=== PATIENT | female | born 1985 | race Caucasian/White ===

== ENCOUNTER 2018-03-12 08:09 | Emergency (ER) | payer SELFPAY ==
[2018-03-12] MEDS ORDERED: ONDANSETRON 4 MG/2 ML VIAL ONE (08:27)
[2018-03-12] MEDS ORDERED: NA CHLORIDE 0.9% 1,000 ML ONE (08:28)
[2018-03-12] MEDS ORDERED: FAMOTIDINE 20 MG/2 ML VIAL IV ONE (08:28)
[2018-03-12 08:58] LABS: Glucose Level 221 mg/dL (65-120)
[2018-03-12 09:01] LABS: Absolute Lymphocytes (CBC) 3.2 K/uL (0.7-4.9); Absolute Monocytes 0.7 K/uL (0.1-1.3); Absolute Neutrophil 17.2 K/uL (1.8-8.0); Basophils % 0.4 % (0-1.3); Eosinophils % 3.4 % (0-4.4); Hematocrit 38.4 % (36.0-45.0); Lymphocytes % 14.6 % (15.3-44.8); MCH 32.2 pg (27.0-35.0); MCV 97.3 fL (80-100); MPV 7.8 fL (7.6-11.3); Monocytes % 3.3 % (3.3-12.3); RBC Red Blood Cell Count 3.94 M/uL (3.86-4.86)
[2018-03-12 09:04] LABS: ALT/SGPT 11 IU/L (10-60); AST/SGOT 27 IU/L (10-42); Albumin 4.5 g/dL (3.2-5.5); Alkaline Phosphatase 87 IU/L (42-121); BUN Blood Urea Nitrogen 12 mg/dL (6-20); Bilirubin Direct 0.1 mg/dL (0-0.2); Bilirubin Total 0.7 mg/dL (0.3-1.2); Protein, Total 7.8 g/dL (6.0-8.3); Protime INR 1.32
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
[2018-03-12 09:14] LABS: Bicarbonate 16 mEq/L (21-31); Sodium Level 137 mEq/L (135-145)
[2018-03-12 09:15] LABS: Alcohol Serum/Plasma < 10 mg/dl
[2018-03-12 09:16] LABS: Potassium 2.8 mEq/L (3.6-5.0)
[2018-03-12 10:16] LABS: Blood Morphology Comment NOT SEEN (NOT SEEN); Platelet Estimate INCR
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
[2018-03-12] MEDS ORDERED: POTASSIUM CL SA 10 MEQ TAB PO ONE (10:55)
[2018-03-12] MEDS ORDERED: KCL 20 MEQ/100 mL IVPB 20 MEQ/100 ML BAG IV ONE (10:55)
[2018-03-12 10:57] LABS: Barbiturates NEGATIVE; Benzodiazepines POSITIVE; Cocaine NEGATIVE; METHAMPHETAM NEGATIVE (NEGATIVE); Opiates NEGATIVE; Phencyclidine NEGATIVE
[2018-03-12 11:00] LABS: THC Cannibis POSITIVE
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
[2018-03-12] MEDS ORDERED: NICOTINE 21 MG/PAT TD ONE (11:28)
[2018-03-12] MEDS ORDERED: LIDOCAINE 1% MPF 2 ML AMPULE ONE (11:56)
[2018-03-12] MEDS ORDERED: LIDOCAINE 2% W/EPI 1:200,000 MPF 20 ML VIAL IM ONE (11:59)
[2018-03-12 12:13] LABS: Urine Blood NEGATIVE (NEG); Urine Glucose NEGATIVE (NEG); Urine Protein 2+ (NEG); Urine Specific Gravity >1.030 (1.005-1.030); Urine pH 5.5 (5.0-7.0)
[2018-03-12 13:34] LABS: Appearance CLEAR (CLEAR); Body Fluid Source CSF; Color of fluid Colorless (COLORLESS); Fluid Total Volume 4 ml
[2018-03-12 13:35] LABS: Appearance CLEAR (CLEAR); Body Fluid Source CSF; Body Fluid WBC 0 /mm^3; Color of fluid Colorless (COLORLESS)
[2018-03-12 13:36] LABS: Body Fluid WBC 0 /mm^3
--- NOTE | 2018-03-12 13:42 | EKG ---
Test Date: 2018-03-12 Test Time: 09:00:38 Aluminum Siding Installer: ADDI MEASUREMENT RESULTS: Intervals: Rate: 119 NV: QRSD: 78 QT: 430 QTc: 604 Lamont: P: NV: QRS: 92 T: 65 INTERPRETIVE STATEMENTS: Accelerated Junctional rhythm Rightward axis Cannot rule out Anterior infarct, age undetermined Prolonged QT Abnormal ECG No previous ECG available for comparison Electronically Signed On 03-12-18 13:40:41 CDT by Amos Marie
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
[2018-03-12 15:08] LABS: CSF Glucose 72 mg/dl (40-70)
--- NOTE | 2018-03-13 07:43 | EKG ---
Test Date: 2018-03-12 Test Time: 13:36:58 [place] Processor: JENNA MEASUREMENT RESULTS: Intervals: Rate: 103 NC: 164 QRSD: 78 QT: 368 QTc: 482 [place]: P: 49 NC: 164 QRS: 83 T: 66 INTERPRETIVE STATEMENTS: Sinus tachycardia Otherwise normal ECG Compared to ECG 03/12/2018 09:00:38 Myocardial infarct finding no longer present Prolonged QT interval no longer present Electronically Signed On 03-13-18 07:42:36 CDT by Francesco Brady
== END 2018-03-12 15:01 | disposition home or self-care (01) ==
LOC: ER 08:09
DX: R56.9 Unspecified convulsions (principal); E87.6 Hypokalemia; V47.5XXA Car driver injured in collision with fixed or stationary object in traffic accident, initial encounter; F20.9 Schizophrenia, unspecified; F31.9 Bipolar disorder, unspecified
CPT/HCPCS: 36415; 51702; 62270; 70450; 71045; 71260; 72125; 74177; 80048; 80076; 80307; 80320; 80329; 81003; 81025; 82945; 82962; 84157; 85025; 85610; 85730; 86403; 87070; 89050; 93005; 96361; 96365; 96366; 96375; 99285; J2001; J2405; J7030; Q9967